=== PATIENT | female | born 1965 | race Caucasian/White ===

== ENCOUNTER 2020-05-22 21:25 | Emergency (ER) | payer BC, SELFPAY ==
--- NOTE | ~2020-05-22 | XR_ITS ---
EXAMINATION: XR hip RT 2V w AP pelvis DATE: 05/22/2020 22:09 INDICATION: Lateral sided right femur pain post fall TECHNIQUE: Anteroposterior view of the pelvis and anteroposterior and frog-leg lateral views of the r ight hip were obtained. COMPARISON: None. FINDINGS: Bone alignment is normal. No fracture or suspected avascular necrosis. Joint spaces are normal. Soft tissues are unremarkable. IMPRESSION: 1. No osseous abnormality. Reviewed, dictated and finalized at location A. IMPRESSION: 1. No osseous abnormality.
[2020-05-22 21:27] VITALS: BP 149/102; PULSE 108; RESP 16; TEMP 36.1; O2SAT 98
--- NOTE | 2020-05-22 22:31 | ED.LOWEXIN ---
HPI - Extremity Injury (Lower) General Chief Complaint: Extremity Injury, Lower Stated Complaint: right hip pain Time Seen by Provider: 05/22/20 22:02 Source: patient Mode of arrival: ambulatory Limitations: no limitations History of Present Illness HPI Narrative: This patient is a 54 year old female who presents for evaluation of right hip pain. She states she tripped over her dog on Friday but she did not fall. She woke the next day on Friday with mild right posterior right hip pain. She has been able to walk around and she reports her hip actually feels better with walking. Today she reports she thinks she felt a pop in her right hip so she has come to ER for evaluation. She denies extremity weakness, numbness or tingling. She has not taken anything for pain. Related Data Allergies Allergy/AdvReac Type Severity Reaction Status Date / Time No Known Allergies Allergy Unverified 02/12/16 08:28 Review of Systems Review of Systems: All systems reviewed & are unremarkable except as noted in HPI and below PMFSH Past Medical History Medical History (Updated 05/23/20 @ 00:00 by Chantelle Berg) Hypertension Surgical History Surgical History (Updated 05/22/20 @ 22:34 by Leeann Espinoza MD) Hx of cholecystectomy Exam Const: General: healthy appearing, no acute distress and alert Nutritional Appearance: obese Orientation/consciousness: patient oriented x3 Eyes: EOM: EOMs intact bilaterally Resp: Effort & Inspection: normal respiratory effort Cardio: Peripheral pulses: Peripheral pulses 2+ throughout Skin: General skin exam: normal color Rashes: no rashes Neuro: General: patient oriented x3 and moves all extremities Extrem: General: normal to inspection and no pedal edema Course Reevaluation(s) Reevaluation #1: I discussed with patient xray is unremarkable. She will follow up with PCP Date: 05/22/20 Time: 23:15 Vital Signs Vital signs: Vital Signs Temperature 96.9 F L 05/22/20 21:27 Pulse Rate 108 H 05/22/20 21:27 Respiratory Rate 16 05/22/20 21:27 Blood Pressure 149/102 H 05/22/20 21:27 Pulse Oximetry 98 05/22/20 21:27 Temperature 96.9 F L 05/22/20 21:27 Pulse Rate 88 05/22/20 23:31 Respiratory Rate 14 05/22/20 23:31 Blood Pressure 141/92 H 05/22/20 23:31 Pulse Oximetry 100 05/22/20 23:31 MDM - Extremity Injury (Lower) Imaging Data Radiologist's impression: ITS Impressions Hip/Pelvis X-Ray 05/22/20 22:11 IMPRESSION: 1. No osseous abnormality. Discharge Plan Discharge Clinical Impression: Acute pain of right hip Patient Disposition: Home, Self-Care Condition: Stable Instructions: Antibiotic Form, Hip Pain (ED) Additional Instructions: Follow up primary care physician if your pain does not improve. Prescriptions: New naproxen sodium [Flanax (naproxen)] 220 mg tablet 220 mg PO Q8H PRN (Reason: pain) Qty: 14 RF: 0 Follow-up/Referrals: Parent,LYNETTE Patterson [Primary Care Provider] - Discharge Date/Time: 05/22/20 23:33
[2020-05-22] MEDS: KETOROLAC (*BKC) 60 MG/2 ML VIAL IM (22:34)
[2020-05-22 23:31] VITALS: BP 141/92; PULSE 88; RESP 14; O2SAT 100
== END 2020-05-22 23:33 | disposition home or self-care (01) ==
PROVIDERS: Emergency Provider General Practice; PCP Physician Assistant
DX: M25.551 Pain in right hip (principal); I10 Essential (primary) hypertension
CPT/HCPCS: 73502; 96372; 99283; J1885

== ENCOUNTER 2020-08-28 16:07 | Observation (INO) | payer BC, SELFPAY ==
--- NOTE | ~2020-08-28 | CT_ITS ---
EXAMINATION: CT abdomen pelvis w con DATE: 08/28/2020 21:10 INDICATION: Right lower quadrant abdominal pain TECHNIQUE: Computed tomography (CT) of the abdomen and pelvis was performed with 100 mL Omnipaque-350 intravenous contrast. Automated exposure control and iterative reconstruction technique were employe d. The dose-length product was 776.11 mGy-cm. COMPARISON: None FINDINGS: Minimal dependent atelectasis in the bilateral lower lobes. Heart size is normal. No pericardial or p leural effusion. Focal hepatic steatosis at the ligamentum teres. Several subcentimeter low-attenuati on hepatic cysts. Mild splenomegaly measuring 13.6 cm craniocaudal length. Cholecystectomy clips at t he gallbladder fossa. Pancreas, left kidney and bilateral adrenal glands are normal. A couple right r enal cysts the larger measuring 1 cm. 4 mm nonobstructing stone at a lower pole calyx of the right ki dney. The fluid-filled retrocecal appendix is dilated to 11 mm in maximal diameter distal to likely o bstructing 5 mm diameter appendicolith in the proximal appendix. There is also some periappendiceal i nflammatory stranding consistent with acute appendicitis but no abscess or free intraperitoneal gas t o suggest rupture. There are few colonic diverticula without adjacent inflammatory change to suggest diverticulitis. Small bowel is normal. 2.4 cm peripherally enhancing centrally lower density uterine fibroid. Bladder and bilateral adnexa are unremarkable. No free intraperitoneal gas or fluid. No path ologically enlarged abdominal or pelvic lymphadenopathy. Mild lumbar spondylosis. IMPRESSION: 1. Acute appendicitis. Dr. Logan discussed these findings with Dr. Bravo at 9:25 PM. 2. Nonobstructing 4 mm right renal stone. 3. Nonspecific mild splenomegaly which may be related to body habitus. Reviewed, dictated and finalized at location . [employer] IMPRESSION: 1. Acute appendicitis. Dr. Logan discussed these findings with Dr. Lawrence ngo t 9:25 PM. 2. Nonobstructing 4 mm right renal stone. 3. Nonspecific mild splenomegaly which may be related to body habitus.
[2020-08-28 16:35] VITALS: BP 164/83; PULSE 74; RESP 18; TEMP 35.9; O2SAT 100
--- NOTE | 2020-08-28 16:38 | PC.NURSE ---
Patient unable to give urine sample at this time, will attempt again later.
[2020-08-28 16:51] LABS: Basophils Percent Auto 0.2 % (0.2-1.2); Eosinophils Percent Auto 0.1 % (0-4.4); Hematocrit 46.6 % (37.0-47.0); Hemoglobin 16.2 g/dL (12.0-15.0); Immature Granulocyte Absolute 0.05 K/mm3 (0.00-0.031); Immature Granulocyte Percent A 0.3 % (0-0.5); Lymphocytes Absolute Auto 1.06 K/mm3 (0.9-3.2); Lymphocytes Percent Auto 6.1 % (18.3-44.2); Mean Corpuscular HGB Conc 34.8 g/dl (32-36); Mean Corpuscular Hemoglobin 31.7 pg (26-34); Mean Corpuscular Volume 91.2 fl (80-100); Mean Platelet Volume 9.4 fl (7.4-10.4); Monocytes Absolute Auto 0.7 K/mm3 (0.1-0.6); Monocytes Percent Auto 4.1 % (2.6-8.5); Neutrophils Absolute Auto 15.6 K/mm3 (1.3-6.7); Neutrophils Percent Auto 89.2 % (45.5-73.1); Platelet Count Result 279 k/mm3 (150-375); Red Blood Count 5.11 M/mm3 (4.2-5.4); Red Cell Distribution Width 12.8 % (11.5-14.5); White Blood Count 17.4 K/mm3 (4.5-10.0)
[2020-08-28 17:04] LABS: Alanine Aminotransferase 25 U/L (4-35); Albumin Level 4.8 g/dL (3.5-5.1); Alkaline Phosphatase 107 U/L (38-126); Anion Gap 11 mmol/L (8-16); Aspartate Amino Transferase 28 U/L (14-36); Blood Urea Nitrogen 17 mg/dL (7-17); Calcium 9.6 mg/dL (8.4-10.2); Carbon Dioxide 25 mmol/L (22-30); Chloride 104 mmol/L (98-107); Estimated CRCL calculation 102 ml/min; Estimated Glomerular Filt Rate > 60; Glucose 159 mg/dL (65-105); Lipase 55 U/L (23-300); Potassium 4.2 mmol/L (3.4-5.0); Sodium 140 mmol/L (137-145)
[2020-08-28 21:04] LABS: Add Urine Microscopic? YES; Appearance Urine Clear (Clear); Bilirubin Urine Negative (Negative); Blood Urine Negative (Negative); Color Urine Yellow (Yellow); Glucose Urine UA 2+ mg/dL (Negative); Ketones Urine 2+ mg/dL (Negative); Leukocyte Esterase Ur Negative LEU/UL (Negative); Mucus Urine Moderate /lpf; Nitrate Urine Negative (Negative); Protein Urine 1+ mg/dL (Negative); Specific Grav Ur 1.025 (1.001-1.035); Squamous Epithelial Cell Urine Occasional /hpf (Few); Urobilinogen Urine Negative mg/dL (<2.0)
[2020-08-28] MEDS: SODIUM CHLORIDE 0.9% IV 1,000 ML 999 ML IV CONT (21:20)
[2020-08-28] MEDS: ONDANSETRON INJ 4 MG/2 ML VIAL IV PUSH ×2 (21:20→23:40)
[2020-08-28] MEDS: MORPHINE SULFATE (*CRX) 4 MG/ML INJ IV PUSH ×2 (21:21→23:40)
--- NOTE | 2020-08-28 21:35 | ED.ABDPAIN ---
HPI - Abdominal Pain General Chief Complaint: Abdominal Pain Stated Complaint: ABD Pain Time Seen by Provider: 08/28/20 20:39 History of Present Illness HPI narrative: Patient is a 54-year-old female who presents ER with abdominal pain. Began this morning after arriving at work. She reports it is diffuse and worse with any type of movement. Some mild nausea but no vomiting. No fevers or chills or sweats. Has not had similar symptoms before. No urinary symptoms. Related Data Home Medications Medication Instructions Recorded Confirmed lisinopril 08/28/20 Allergies Allergy/AdvReac Type Severity Reaction Status Date / Time No Known Allergies Allergy Verified 08/28/20 16:37 Review of Systems Review of Systems: All systems reviewed & are unremarkable except as noted in HPI and below Constitutional: Constitutional: Denies chills, Denies fever(s) and Denies weakness Respiratory: Respiratory: Denies cough and Denies dyspnea Gastrointestinal: Gastrointestinal: Reports abdominal pain, Denies constipation, Denies diarrhea, Reports nausea and Denies vomiting Genitourinary: Genitourinary: Denies nocturia, Denies dysuria and Denies flank pain PMFSH Past Medical History Medical History (Updated 08/29/20 @ 00:57 by Rony Bravo MD) Hypertension Surgical History Surgical History (Updated 08/28/20 @ 21:37 by Rony Bravo MD) History of section Hx of cholecystectomy Social History Social History (Updated 08/28/20 @ 21:38 by Rony Bravo MD) Smoking status: Never smoker Exam Narrative: Exam Narrative: GENERAL: Uncomfortable-appearing, well-nourished, and in no acute distress. HEAD: Normocephalic, atraumatic. CHEST: Clear to auscultation. No respiratory distress. HEART: Regular rate and rhythm. Normal peripheral pulses. ABDOMEN: Soft, tender palpation right lower quadrant with guarding, positive Rovsing sign, nondistended. EXTREMITIES: Normal range of motion. No edema. SKIN: Warm, dry, no rash. NEURO: Alert and oriented x3. PSYCH: Normal mood and affect. Course Course Emergency Course: Patient informed of results. Admit to general surgery. Keep n.p.o. Started on Zosyn. Vital Signs Vital signs: Vital Signs Temperature 96.7 F L 08/28/20 16:35 Pulse Rate 74 08/28/20 16:35 Respiratory Rate 18 08/28/20 16:35 Blood Pressure 164/83 H 08/28/20 16:35 Pulse Oximetry 100 08/28/20 16:35 Temperature 96.7 F L 08/28/20 16:35 Pulse Rate 80 08/28/20 23:44 Respiratory Rate 20 08/28/20 23:44 Blood Pressure 140/69 08/28/20 23:44 Pulse Oximetry 97 08/28/20 23:44 MDM - Abdominal Pain Lab Data Result diagrams: 08/28/20 16:40 08/28/20 16:40 Labs: Lab Results 08/28/20 08/28/20 08/28/20 Range/Units 16:40 16:40 20:52 WBC 17.4 H (4.5-10.0) K/mm3 RBC 5.11 (4.2-5.4) M/mm3 Hgb 16.2 H (12.0-15.0) g/dL Hct 46.6 (37.0-47.0) % MCV 91.2 (80-100) fl MCH 31.7 (26-34) pg MCHC 34.8 (32-36) g/dl RDW 12.8 (11.5-14.5) % Plt Count 279 (150-375) k/mm3 MPV 9.4 (7.4-10.4) fl Immature Gran % (Auto) 0.3 (0-0.5) % Neut % (Auto) 89.2 H (45.5-73.1) % Lymph % (Auto) 6.1 L (18.3-44.2) % [place] % (Auto) 4.1 (2.6-8.5) % Eos % (Auto) 0.1 (0-4.4) % Baso % (Auto) 0.2 (0.2-1.2) % Lymph # (Auto) 1.06 (0.9-3.2) K/mm3 [place] # (Auto) 0.7 H (0.1-0.6) K/mm3 Eos # (Auto) 0.0 (0-0.3) K/mm3 Baso # (Auto) 0.0 (0.0-0.1) K/mm3 Abs Immat Gran (auto) 0.05 H (0.00-0.031) K/mm3 Absolute Neuts (auto) 15.6 H (1.3-6.7) K/mm3 Absolute Nucleated RBC 0.0 (0.0-0.012) K/mm3 Nucleated RBC % 0.0 (0.0-0.2) % Sodium 140 (137-145) mmol/L Potassium 4.2 (3.4-5.0) mmol/L Chloride 104 (98-107) mmol/L Carbon Dioxide 25 (22-30) mmol/L Anion Gap 11 (8-16) mmol/L BUN 17 (7-17) mg/dL Creatinine 0.60 L (0.7-1.0) mg/dL Estim Cre
[2020-08-28] MEDS: SODIUM CHLORIDE 0.9% IV 1,000 ML 125 ML IV CONT (23:40)
[2020-08-28 23:44] VITALS: BP 140/69; PULSE 80; RESP 20; O2SAT 97
[2020-08-29] VITALS (14 sets, daily range): BP systolic 120–147; BP diastolic 59–94; PULSE 70–93; RESP 16–20; TEMP 36.2–38.3; O2SAT 92–100; BMI 32.5
--- NOTE | 2020-08-29 01:52 | PC.NURSE ---
This patient, Merly Benavides, was admitted to Medical Room 241-01. Patient/family oriented to hospital policies and general routines including ID bracelet, bed and alarms, visiting hours, pain management, procedures, bathroom and other care routines, personal items, smoking policy, room service/diet, and visiting hours. Information on how to activate the Rapid Response Team has been discussed. Patient/Family are encouraged to report perceived risks to care and to ask questions if they do not understand what they are told or what they should do.
[2020-08-29] MEDS: MORPHINE SULFATE (*CRX) 4 MG/ML INJ IV PUSH ×2 (03:55→09:33)
[2020-08-29 07:28] LABS: Glucose Point of Care 154 (65-105)
--- NOTE | 2020-08-29 08:35 | WPDANESEPPF ---
Anes - Initial Pre Proc Eval Procedure: Operation Date: 08/29/20 15:00 Proposed Procedures p Laparoscopic Appendectomy - Maninder Castillo DO Date/Time: 08/29/20 08:35 Surgeon: Maninder Castillo DO Pre Op Diagnosis: appendicitis Patient Data Age: 54 Gender: F Height: 1.65 m Weight: 88.7 kg Last Vital Signs Temp 36.2 C L 08/29/20 05:37 Pulse 84 08/29/20 05:37 Resp 20 08/29/20 05:37 BP 135/64 08/29/20 05:37 Pulse Ox 98 08/29/20 05:37 Allergies Allergy/AdvReac Type Severity Reaction Status Date / Time No Known Allergies Allergy Verified 08/28/20 16:37 Home Medications Medication Instructions Recorded Confirmed Type naproxen sodium [Flanax (naproxen)] 220 mg PO Q8H PRN #14 tablet 05/22/20 08/29/20 Rx lisinopril 20 mg PO DAILY 08/28/20 08/29/20 History cholecalciferol (vitamin D3) 1,250 mcg PO DAILY 08/29/20 08/29/20 History Laboratory Tests 08/28/20 08/28/20 08/28/20 16:40 16:40 20:52 WBC 17.4 K/mm3 H K/mm3 (4.5-10.0) RBC 5.11 M/mm3 M/mm3 (4.2-5.4) Hgb 16.2 g/dL H g/dL (12.0-15.0) Hct 46.6 % % (37.0-47.0) MCV 91.2 fl fl (80-100) MCH 31.7 pg pg (26-34) MCHC 34.8 g/dl g/dl (32-36) RDW 12.8 % % (11.5-14.5) Plt Count 279 k/mm3 k/mm3 (150-375) MPV 9.4 fl fl (7.4-10.4) Immature Gran % (Auto) 0.3 % % (0-0.5) Neut % (Auto) 89.2 % H % (45.5-73.1) Lymph % (Auto) 6.1 % L % (18.3-44.2) [place] % (Auto) 4.1 % % (2.6-8.5) Eos % (Auto) 0.1 % % (0-4.4) Baso % (Auto) 0.2 % % (0.2-1.2) Lymph # (Auto) 1.06 K/mm3 K/mm3 (0.9-3.2) [place] # (Auto) 0.7 K/mm3 H K/mm3 (0.1-0.6) Eos # (Auto) 0.0 K/mm3 K/mm3 (0-0.3) Baso # (Auto) 0.0 K/mm3 K/mm3 (0.0-0.1) Abs Immat Gran (auto) 0.05 K/mm3 H K/mm3 (0.00-0.031) Absolute Neuts (auto) 15.6 K/mm3 H K/mm3 (1.3-6.7) Absolute Nucleated RBC 0.0 K/mm3 K/mm3 (0.0-0.012) Nucleated RBC % 0.0 % % (0.0-0.2) Sodium 140 mmol/L mmol/L (137-145) Potassium 4.2 mmol/L mmol/L (3.4-5.0) Chloride 104 mmol/L mmol/L (98-107) Carbon Dioxide 25 mmol/L mmol/L (22-30) Anion Gap 11 mmol/L mmol/L (8-16) BUN 17 mg/dL mg/dL (7-17) Creatinine 0.60 mg/dL L mg/dL (0.7-1.0) Estim Creat Clear Calc 102 ml/min ml/min Estimated GFR > 60 (59 - ) Glucose 159 mg/dL H mg/dL (65-105) POC Capillary Glucose Calcium 9.6 mg/dL mg/dL (8.4-10.2) Total Bilirubin 1.0 mg/dL mg/dL (0.2-1.3) AST 28 U/L U/L (14-36) ALT 25 U/L U/L (4-35) Alkaline Phosphatase 107 U/L U/L (38-126) Total Protein 9.0 g/dL H g/dL (6.3-8.2) Albumin 4.8 g/dL g/dL (3.5-5.1) Lipase 55 U/L U/L (23-300) Urine Color Yellow (Yellow) Urine Appearance Clear (Clear) Urine pH 5.0 (5.0-9.0) Ur Specific [place] 1.025 (1.001-1.035) Urine Protein 1+ mg/dL H mg/dL (Negative) Urine Glucose (UA) 2+ mg/dL H mg/dL (Negative) Urine Ketones 2+ mg/dL H mg/dL (Negative) Ur Blood (Man) Negative (Negative) Urine Nitrate Negative (Negative) Urine Bilirubin Negative (Negative) Urine Urobilinogen Negative mg/dL mg/dL (<2.0) Leukocyte Esterase Rfl Negative PAVEL/UL PAVEL/UL (Negative) Urine RBC 3-5 /hpf H /hpf (0-2) Urine WBC 4-6 /hpf H /hpf Ur Squamous Epith Cells Occasional /hpf /hpf (Few) Hyaline Casts 3-4 /lpf H /lpf (None) Urine Mucus Moderate /lpf H /lpf 08/29/20 07:16 WBC RBC Hgb Hct MCV MCH MCHC RDW
[2020-08-29] MEDS: SODIUM CHLORIDE 0.9% IV 1,000 ML 125 ML IV CONT (09:32)
--- NOTE | 2020-08-29 09:50 | PM.IMHP ---
H&P: HPI History of Present Illness Date/Time: 08/29/20 09:20 Chief complaint: appendicitis Narrative: Merly Benavides is a 54 year old female with a history of hypertension and diet-controlled type 2 diabetes mellitus, who presented to the emergency department last night with complaints of right lower quadrant abdominal pain. The patient reports a sudden onset of right lower quadrant abdominal pain around 7:30 a.m. yesterday morning. She has never experienced this pain in the past. She reports taking Advil without any relief. Throughout the day, she developed nausea and dry heaving. She was unable to tolerate any oral intake yesterday. The pain continued to worsen and was unrelenting, therefore she presented to the emergency department for further evaluation. CT scan of the abdomen and pelvis showed a fluid-filled retrocecal appendix dilated to 11 mm in diameter distal to a likely obstructing 5 mm diameter appendicolith in the proximal appendix with periappendiceal inflammatory stranding consistent with acute appendicitis, but no abscess or free intraperitoneal gas to suggest rupture. Labs revealed a white blood cell count of 17,400. The patient has been afebrile since admission. She is now seen on the medical floor and reports still having significant right lower quadrant abdominal pain that is now radiating to her right flank. She reports the pain medication does help her pain. Denies any nausea at this time. Reports bowels have been moving normally with her last bowel movement yesterday morning. No other complaints at this time. Review of Systems Constitutional: Constitutional: Reports as per HPI, Denies chills, Denies excessive sweating, Denies fatigue, Denies fever(s), Denies headache(s) and Denies weakness Eyes: Eyes: Denies change in vision and Denies loss of vision ENT: Reports Normal hearing present, Denies dizziness and Denies headache(s) Cardiovascular: Cardiovascular: Denies chest pain, Denies syncope, Denies leg edema, Denies lightheadedness, Denies radiating jaw, neck or arm pain and Denies dyspnea Respiratory: Respiratory: Denies cough, Denies dyspnea and Denies wheezing Gastrointestinal: Gastrointestinal: Reports as per HPI, Reports abdominal pain, Denies melena, Denies bloating, Denies hematochezia, Denies change in bowel habits, Denies constipation, Denies dysphagia, Denies diarrhea, Reports nausea and Denies vomiting Genitourinary: Genitourinary: Reports no additional female genitourinary complaints, Denies hematuria, Denies dysuria, Denies urinary hesitancy and Denies urinary urgency Musculoskeletal: Musculoskeletal: Denies deformity, Denies joint swelling, Denies radiating pain into limb and Denies tingling Integumentary/Breasts: Skin/Breast: Denies pruritus, Denies wounds and Denies jaundice Neurologic: Reports Normal hearing present, Denies confusion, Denies dizziness, Denies syncope, Denies headache(s), Denies loss of vision, Denies tingling, Denies tremor(s) and Denies weakness Psychiatric: Psychiatric: Denies anxiety, Denies confusion and Denies depression Endocrine: Endocrine: Denies cold intolerance, Denies excessive sweating, Denies fatigue and Denies heat intolerance Hematologic/Lymphatic: Hematologic/Lymphatic: Denies easy bleeding and Denies easy bruising PMFSH Past Medical History Medical History Anemia Diabetes type 2, controlled Hypertension RUT (obstructive sleep apnea) Surgical History Surgical History History of section x 2 Hx of cholecystectomy Laparoscopic cholecystectomy Family History Family History Mother Diabetes mellitus Heart disease Hypertension Social History Social History Social History: The patient does not have a healthcare power of atto
--- NOTE | 2020-08-29 10:19 | ECG_ITS ---
Measurements Intervals [place] Rate: 79 P: 44 DE: 162 QRS: -58 QRSD: 115 T: -88 QT: 374 QTc: 430 Interpretive Statements SINUS RHYTHM LEFT ANTERIOR FASCICULAR BLOCK VOLTAGE CRITERIA FOR LVH BORDERLINE T WAVE ABNORMALITY- DIFFUSE LEADS BASELINE ARTIFACT- II, III, V1 ABNORMAL ECG Electronically Signed On 08-29-2020 10:47:12 [employer] by Ashkan Marrero D.O.
[2020-08-29 12:09] LABS: Glucose Point of Care 149 (65-105)
[2020-08-29] MEDS: LACTATED RINGERS 1,000 ML 30 ML IV CONT ×2 (15:19→18:30)
[2020-08-29] MEDS: fentaNYL CITRATE INJ (*CRX) 100 MCG/2 ML VIAL 50 MCG IV PUSH (15:20)
[2020-08-29 15:26] LABS: Glucose Point of Care 136 (65-105)
--- NOTE | 2020-08-29 16:04 | SUR.PREOP ---
1515-DISCUSSED ELEVATED TEMP WITH DR. ASHLEY, WILL GIVE IVPB TYLENOL. UNABLE TO INFORM DR. US AT THIS TIME PER Angeline BARRIOS RN LINE OUT WORKER. 1550-Angeline BARRIOS RN WILL UPDATE DR. US RE: ELEVATED TEMP AND TYLENOL.
--- NOTE | 2020-08-29 16:35 | SUR.PREOP ---
[address] Castillo in room talking with pt. dr zacarias of temp
--- NOTE | 2020-08-29 16:54 | WPDHPUPDATE1 ---
History and Physical Update Update Date/Time: 08/29/20 16:54 History and Physical has been reviewed, including an updated exam of the patient. There are NO changes in the patient's condition. Risks, benefits, and alternatives have been discussed and questions answered. Patient agrees to proceed with procedure.
--- NOTE | 2020-08-29 18:17 | PM.PROC ---
Procedure Note - Detailed Date of procedure: 08/29/20 Pre-op diagnosis: appendicitis Post-op diagnosis: other (Perforated gangrenous appendicitis) Procedure performed: 1. Laparoscopic Appendectomy 2. Laparoscopic drainage of intra-abdominal abscess Description of procedure: Procedure as well as risks, benefits, and alternatives were explained to the patient. The patient agreed to proceed. Written consent was obtained and placed in chart prior to procedure. The patient was brought back to surgical suite. She was placed supine on operating table. Time-out was done to confirm the patient and procedure. The patient was then intubated by the Anesthesia Department. Her abdomen was prepped and draped in sterile fashion using chlorhexidine prep. A 5 mm incision was made just to the left of the patient's umbilicus and a 5 mm Optiview trocar was advanced through the abdominal layers under direct visualization. Once inside the peritoneal cavity, carbon dioxide insufflation was used to create a pneumoperitoneum. The camera was inserted and the abdomen was inspected. No immediate abnormalities were identified. The patient was then placed in slight Trendelenburg position and rotated to the left. A 5 mm incision was made in the suprapubic region in midline and a 5 mm trocar was inserted under direct visualization. A 12 mm incision was made in the left lower quadrant and a 12 mm trocar was inserted under direct visualization. The right lower quadrant was carefully inspected. The cecum was identified and then this was traced back to the appendix. There were 2 small abscesses forming between loops of ileum and the appendix. The abscesses were drained using a suction search engine optimization manager. The appendix was identified in a retrocecal location and appeared gangrenous. The appendix was identified and grasped at the mesoappendix and lifted anteriorly. Careful blunt dissection was carried out at the base of the appendix through the mesoappendix using a [place] grasper. An Endo-JEYSON 45 mm blue load stapler was then advanced across the base of the appendix and clamped and fired. A white reload was then clamped across the mesoappendix and fired. This freed up our appendix completely. It was then placed in an EndoCatch bag and removed through the left lower quadrant port. The staple lines were then inspected. Hemostasis appeared adequate and the staple lines appeared secure. The area was then irrigated with sterile saline. The pelvis was then carefully inspected and irrigated with sterile saline as well and the remainder of the abdomen was carefully inspected. The patient was then flattened out in bed. One final inspection was made around the abdominal cavity and no other abnormalities were seen. The left lower quadrant port was removed and a Julien-Giovany cone was used to approximate the fascia with a 0 Vicryl simple interrupted suture. The remaining ports were then removed under direct visualization. The camera was removed and the pneumoperitoneum was released. 0.5% bupivacaine with epinephrine was infiltrated locally around each of the incisions. The skin of the incisions was then approximated using 4-0 Monocryl subcuticular suture and Exofin glue was applied on top. The patient was then awakened from anesthesia, extubated, and transferred to Recovery. Anesthesia: GETA and local (0.25% bupivicaine with epi) Surgeon: Maninder Castillo DO Estimated blood loss (mL): 20 Pathology: yes (Appendix) Complications: No immediate complications Condition: stable Disposition: floor Findings: This is a 54-year-old woman who presented to the emergency department overnight with complaints of right lower quadrant abdominal pain. Her pain started yesterday morning and continued to progress throughout the day. In the emergency department last night, a CT of her abdomen and pelvis was obtained in this showed evidence of acute appendicitis. She was also noted to start having fevers this afte
[2020-08-29 18:49] LABS: Glucose Point of Care 166 (65-105)
--- NOTE | 2020-08-29 19:19 | SUR.PHASEI ---
1918 SBAR FAXED FLOOR NOTIFIED
[2020-08-29] MEDS: LACTATED RINGERS 1,000 ML 100 ML IV CONT (20:08)
--- NOTE | 2020-08-29 20:19 | PC.NURSE ---
received Doreen puente from PACU at 20:05
[2020-08-29 22:06] LABS: Glucose Point of Care 208 (65-105)
[2020-08-30 01:40] VITALS: BP 112/63; PULSE 78; RESP 18; TEMP 36.3; O2SAT 95
[2020-08-30 04:59] LABS: Hematocrit 38.3 % (37.0-47.0); Hemoglobin 13.1 g/dL (12.0-15.0); Mean Corpuscular HGB Conc 34.2 g/dl (32-36); Mean Corpuscular Hemoglobin 31.5 pg (26-34); Mean Corpuscular Volume 92.1 fl (80-100); Mean Platelet Volume 9.5 fl (7.4-10.4); Platelet Count Result 239 k/mm3 (150-375); Red Blood Count 4.16 M/mm3 (4.2-5.4); White Blood Count 17.2 K/mm3 (4.5-10.0)
[2020-08-30 05:40] VITALS: BP 137/62; PULSE 71; RESP 20; TEMP 36.6; O2SAT 95
[2020-08-30] MEDS: IBUPROFEN 600 MG TABLET PO ×2 (06:00→11:30)
[2020-08-30 06:20] LABS: Anion Gap 9 mmol/L (8-16); Blood Urea Nitrogen 8 mg/dL (7-17); Calcium 8.8 mg/dL (8.4-10.2); Carbon Dioxide 24 mmol/L (22-30); Chloride 106 mmol/L (98-107); Estimated CRCL calculation 98 ml/min; Estimated Glomerular Filt Rate > 60; Glucose 171 mg/dL (65-105); Sodium 139 mmol/L (137-145)
[2020-08-30 07:36] LABS: Glucose Point of Care 163 (65-105)
--- NOTE | 2020-08-30 08:18 | WPDANESPN ---
Anes - Prog Note Post-Op Date/Time: 08/30/20 08:18 Cardiovascular status: normal Respiratory status: normal Airway patency: baseline Mental status: baseline Post-Op hydration status: normal Vital Signs: Last Vital Signs Temp 36.6 C 08/30/20 05:40 Pulse 71 08/30/20 05:40 Resp 20 08/30/20 05:40 BP 137/62 08/30/20 05:40 Pulse Ox 95 08/30/20 05:40 Pain Score (VAS): 0 I/O: Intake & Output 08/29/20 08/30/20 08/30/20 23:59 07:59 15:59 Intake Total 650 340 Output Total 800 Balance 650 -460 Laboratory Tests 08/30/20 04:38 08/30/20 05:41 08/29/20 08/29/20 08/29/20 11:59 15:24 18:28 WBC RBC Hgb Hct MCV MCH MCHC RDW Plt Count MPV Sodium Potassium Chloride Carbon Dioxide Anion Gap BUN Creatinine Estim Creat Clear Calc Estimated GFR Glucose POC Capillary Glucose 149 H 136 H 166 H Calcium 08/29/20 08/30/20 08/30/20 22:03 04:38 05:41 WBC 17.2 H RBC 4.16 L Hgb 13.1 D Hct 38.3 MCV 92.1 MCH 31.5 MCHC 34.2 RDW 13.0 Plt Count 239 MPV 9.5 Sodium 139 Potassium 4.0 Chloride 106 Carbon Dioxide 24 Anion Gap 9 BUN 8 D Creatinine 0.60 L Estim Creat Clear Calc 98 Estimated GFR > 60 Glucose 171 H POC Capillary Glucose 208 H Calcium 8.8 08/30/20 07:31 WBC RBC Hgb Hct MCV MCH MCHC RDW Plt Count MPV Sodium Potassium Chloride Carbon Dioxide Anion Gap BUN Creatinine Estim Creat Clear Calc Estimated GFR Glucose POC Capillary Glucose 163 H Calcium Post-procedural complaints: none Patient Feedback: Patient satisfied with anesthetic care.
[2020-08-30] MEDS: lisinopriL 20 MG TABLET PO (08:32)
[2020-08-30 09:40] VITALS: BP 128/62; PULSE 64; RESP 16; TEMP 36.9; O2SAT 98
[2020-08-30 10:59] VITALS: BMI 50.3
[2020-08-30 11:34] LABS: Glucose Point of Care 175 (65-105)
[2020-08-30 13:40] VITALS: BP 107/40; PULSE 80; RESP 18; TEMP 36.2; O2SAT 97
--- NOTE | 2020-08-30 15:39 | PM.DS ---
DS: Admitting Diagnosis Admitting Diagnosis Admitting Diagnosis: appendicitis DS: Discharge Diagnosis Discharge Diagnosis (1) Hypertension: Code(s): I10 - Essential (primary) hypertension Status: Acute (2) Acute perforated appendicitis: Code(s): K35.32 - Acute appendicitis with perforation and localized peritonitis, without abscess Status: Acute Assessment and Plan: 08/29/[address] Castillo DS: Summary Hospital Course Reason for hospitalization: Merly Benavides is a 54 year old female with a history of hypertension and diet-controlled type 2 diabetes mellitus, who presented to the emergency department with complaints of right lower quadrant abdominal pain. CT scan of the abdomen and pelvis showed acute appendicitis and labs revealed a white blood cell count of 17,400. She was admitted in this setting to our service for surgical evaluation. Hospital Course: She was started on IV Zosyn, IV fluids, and made NPO. The patient was admitted to our service and taken to the OR for urgent laparoscopic appendectomy. She was found to have a perforated gangrenous appendicitis. IV antibiotics were continued and the patient was kept overnight. Labs were repeated this morning and WBC remained at 17,000. She has been afebrile since surgery. PRN analgesics were used for pain control. Patient seen today and reports feeling much better with very little pain, only sorness at incisions. Denies nausea, vomiting, or bloating. She has been tolerating a diet through the day. Voiding without complaints. Pain well controlled. Passing gas but no BM yet. No other complaints at this time. Discussed the case with Dr. Castillo who okays discharge for the patient. We will send her home on 2 weeks of oral antibiotics. Discharge instructions discussed with the patient and all questions answered. Will f/u in 2 weeks. Status at Discharge Functional status at discharge: independent ambulation Overall status at discharge: patient is progressing back to baseline Time Spent with Patient Time attestation: Total time spent providing and/or coordinating discharge services: Time spent: Greater than 30 minutes Exam Const: General: comfortable, no acute distress, alert and awake Orientation/consciousness: patient oriented x3 Resp: Effort & Inspection: normal respiratory effort Auscultation: clear to auscultation bilaterally Cardio: Rate: regular rate Rhythm: regular rhythm GI: Inspection: non-distended and incision (Trochar incisions clean/dry/intact.) GI Palp: Yes Soft to palpation, Yes Tenderness to palpation present (GI) (right-sided and incisional tenderness), No Guarding due to palpation present (GI) and No Rebound tenderness present Auscultation: normal bowel sounds Neuro: General: patient oriented x3 and moves all extremities Cranial nerves: Yes CN's II-XII intact bilaterally Speech: normal speech Extrem: General: no calf tenderness and no edema Psych: Mental Status: mental status grossly normal Attitude: cooperative Thought process: Normal thought process present Thought content: Yes Normal thought content present DS: Data Data Completed and Pending Completed studies during hospitalization: Procedures Operation Date: 08/29/20 15:00 Actual Procedures Side Surgeon p Laparoscopic Appendectomy Not Applicable Maninder Castillo DO Pending studies at discharge: Pending at discharge 08/29/20 18:01 Surgical [PTH] Routine Labs on day of discharge: Labs from last 24 hours 08/30/20 08/30/20 08/30/20 11:11 07:31 05:41 WBC RBC Hgb Hct MCV MCH MCHC RDW Plt Count MPV Sodium 139 Potassium 4.0 Chloride 106 Carbon Dioxide 24 Anion Gap 9 BUN 8 D Creatinine 0.60 L Estim Creat Clear Calc 98 Estimated GFR > 60 Glucose 171 H POC Capillary Glucose 175 H 163 H Calcium 8.8 08/30/20 08/29/20 08/29/20 04:38 22:03 18:28 WBC 1
== END 2020-08-30 17:40 | disposition home or self-care (01) ==
LOC: ANHED 20:44 → ANH2MED 08-29 00:21
PROVIDERS: Emergency Medicine; Admitting Provider Surgery; Emergency Provider Emergency Medicine; PCP Physician Assistant; Visit Provider Surgery
PROC: 0DTJ4ZZ Resection of Appendix, Percutaneous Endoscopic Approach (ICD-10-PCS; CPT 44970; principal; 2020-08-29 15:00)
DX: K35.30 Acute appendicitis with localized peritonitis, without perforation or gangrene (principal); I10 Essential (primary) hypertension; E11.9 Type 2 diabetes mellitus without complications; D64.9 Anemia, unspecified; G47.33 Obstructive sleep apnea (adult) (pediatric); Z87.891 Personal history of nicotine dependence; E66.01 Morbid (severe) obesity due to excess calories; Z68.43 Body mass index [BMI] 50.0-59.9, adult
CPT/HCPCS: 44970; 36415; 74177; 80048; 80053; 81001; 81025; 83690; 85025; 85027; 88304; 93005; 96361; 96365; 96375; 96376; 99285; A9270; G0378; J0131; J0330; J1100; J2250; J2270; J2405; J2543; J2704; J3010; J7030; J7120; Q9967